=== PATIENT | female | born 1985 | race Asian ===

== ENCOUNTER 2019-04-25 19:24 | Emergency (ER) | payer BC, OTHER ==
[2019-04-25] MEDS: IBUPROFEN 800 MG TAB PO (20:21)
== END 2019-04-25 21:10 | disposition home or self-care (01) ==
LOC: FTE 19:24
DX: S13.4XXA Sprain of ligaments of cervical spine, initial encounter (principal); V49.59XA Passenger injured in collision with other motor vehicles in traffic accident, initial encounter
CPT/HCPCS: 99282